=== PATIENT | female | born 1980 | race Caucasian/White ===

== ENCOUNTER 2022-05-22 10:32 | Emergency (ER) | payer SELFPAY ==
[~2022-05-22] VITALS: Ht 154.9 cm; Wt 102.0 kg
--- NOTE | 2022-05-22 11:05 | ED Abdominal Pain ---
General Chief Complaint: Abdominal/GI Problems Stated Complaint: ABD PAIN History of Present Illness Date Seen by Provider: May 22, 2022 Time Seen by Provider: 11:04 Initial Comments 42 y/o female presents today with c/o painful umbilical hernia. Pt states it has been present for approximately two years and has pain intermittently, this episode started two days ago. She has been taking motrin and some hydrocodone that she was given by a friend, but has not taken anything today. Pain is accompanied by nausea. She states she had some dysuria 2-3 days ago, but that has resolved. She reports she was told she couldn't have hernia operated on until she loses weight. She denies fever, chills, hematuria, urinary frequency or urgency, constipation, diarrhea, bloody stools, decreased appetite, vomiting, back pain, flank pain. She also c/o cough, congestion, and sore throat that started last night. Timing/Duration: 1-2 Days Severity/Quality: Moderate, Aching Location: Periumbilical Radiation: No Radiation Activities at Onset: None Modifying Factors: Improves With Analgesics; Worsens With Coughing; Improves With Defecating; Worsens With Movement Associated Symptoms: No Back Pain, No Chest Pain, No Diaphoresis, No Fever/Chills, No Fatigue; Headache; No Heartburn; Nausea/Vomiting (nausea without vomiting); No Shortness of Air; Swelling/Mass in Abdomen (known umbi lical hernia); No Syncope, No Weakness; Other (cough, congestion, sore throat) (DIANA BURGESS APRN) Allergies and Home Medications Allergies Coded Allergies: No Known Drug Allergies (Unverified , 05/22/22) Patient Home Medication List Home Medication List Reviewed: Yes (DIANA BURGESS APRN) Cefdinir (Cefdinir) 300 Mg Capsule, 300 MG PO BID Prescribed by: Diana Burgess on 05/22/22 1151 Review of Systems Review of Systems Constitutional: No chills, No diaphoresis, No fever, No malaise EENTM: No Ear Pain, No Mouth Pain, No Mouth Swelling; Nose Congestion; No Nose Pain; Throat Pain; No Throat Swelling Respiratory: Cough; Denies Shortness of Air, Denies SOA With Exertion, Denies SOA at Rest, Denies Wheezing Cardiovascular: Denies Chest Pain, Denies Palpitations, Denies Syncope Gastrointestinal: Denies Abdomen Distended; Abdominal Pain; Denies Blood Streaked Stools, Denies Constipated, Denies Diarrhea, Denies Difficulty Swallowing; Nausea; Denies Poor Appetite, Denies Rectal Bleeding, Denies Vomiting Genitourinary: Denies Burning, Denies Discharge, Denies Drainage, Denies Freq uency, Denies Flank Pain, Denies Hematuria, Denies Incontinence, Denies Pain, Denies Urgency Musculoskeletal: No back pain, No joint swelling, No muscle pain, No muscle stiffness, No muscle cramps Skin: No lesions, No pruritus, No rash Endocrine: No Symptoms Reported Hematologic/Lymphatic: No Symptoms Reported (DIANA BURGESS APRN) Past Qatxgqa-Sbyvwh-Ropgqn Hx Patient Social History Tobacco Use?: No Substance use?: No Alcohol Use?: No (DIANA BURGESS APRN) Past Medical History Gallbladder (DIANA BURGESS APRN) Physical Exam Vital Signs Vital Signs - First Documented 05/22/22 10:50 Temp 37.3 Pulse 121 Resp 16 B/P (MAP) 148/102 (117) Pulse Ox 99 O2 Delivery Room Air (BLAYNE TRAN MD) Vital Signs Capillary Refill : (DIANA BURGESS APRN) Height/Weight/BMI Height: '" Weight: lbs. oz. kg; BMI Method: General Appearance: WD/WN, no apparent distress HEENT: TMs normal, pharynx normal, other (nares congested) Neck: non-tender, full range of motion, supple, normal inspection Respiratory: chest non-tender, lungs clear, normal breath sounds, no respiratory distress Cardiovascular: normal peripheral pulses, regular rate, rhythm Gastrointestinal: normal bowel sounds, soft; No distended, No guarding, No rebound; tenderness (umbilical hernia), hernia (umbilical) Back: normal inspection, no CVA tenderness Skin: normal color, warm/dry Lymphatic: no adenopathy (DIANA BURGESS APRN) Progress/Results/Core Measures Results/Orders Lab Results Laboratory Tests Test 05/22/22 10:34 05/22/22 10:55 05/22/22 11:19 Range/Units Lab Scanned Report Referred Lab Report [id number] Influenza Type A (RT-PCR) Not Detected Not Detecte Influenza Type B (RT-PCR) Not Detected Not Detecte SARS-CoV-2 RNA (RT-PCR) Not Detected Not Detecte Urine Color YELLOW Urine Clarity CLEAR Urine pH 7.0 5-9 Urine Specific [place] 1.025 H 1.016-1.022 Urine Protein NEGATIVE NEGATIVE Urine Glucose (UA) NEGATIVE NEGATIVE Urine Ketones NEGATIVE NEGATIVE Urine Nitrite NEGATIVE NEGATIVE Urine Bilirubin NEGATIVE NEGATIVE Urine Urobilinogen 1.0 < = 1.0 MG/DL Urine Leukocyte Esterase 1+ H NEGATIVE Urine RBC (Auto) NEGATIVE NEGATIVE Urine RBC NONE /HPF Urine WBC 5-10 H /HPF Urine Squamous Epithelial Cells 5-10 /HPF Urine Crystals NONE /LPF Urine Bacteria MODERATE H /HPF Urine Casts NONE /LPF Urine Mucus SMALL H /LPF Urine Culture Indicated YES (BLAYNE TRAN MD) Micro Results Microbiology 05/22/22 Urine Culture - Final, Complete Growth Consistent (BLAYNE TRAN MD) My Orders Orders - BLAYNE TRAN MD Ua Culture If Indicated (05/22/22 10:56) Influenza A And B By Pcr (05/22/22 11:02) Covid 19 Inhouse Test (05/22/22 11:02) Isolation Central Supply Req (05/22/22 11:02) Urine Culture (05/22/22 11:19) (BLAYNE TRAN MD) Vital Signs/I&O 05/22/22 05/22/22 10:50 11:58 Temp 37.3 Pulse 121 111 Resp 16 18 B/P (MAP) 148/102 (117) 145/85 Pulse Ox 99 98 O2 Delivery Room Air Room Air (BLAYNE TRAN MD) Departure Impression Primary Impression: Umbilical hernia Additional Impression: UTI (urinary tract infection) Disposition: 01 HOME, SELF-CARE Condition: Improved Departure-Patient Inst. Decision time for Depature: 11:44 (DIANA BURGESS APRN) Referrals: [facility] (PCP/Family) Primary Care Physician Add. Discharge Instructions: Tylenol 500mg every 4 hours as needed, ibuprofen 600mg every 6 hours as needed for pain. Avoid straining and any lifting greater than 10 pounds. Take antibiotic as prescribed for UTI. Push fluids, drink at least 2 liters of water daily. Follow up with PCP if hernia continues to be bothersome. Follow up with any new/worsening concerns. All discharge instructions reviewed with patient and/or family. Voiced understanding. Scripts Cefdinir (Cefdinir) 300 Mg Capsule 300 MG PO BID for 5 Days, #10 CAP Prov: DIANA BURGESS APRN 05/22/22 ATTENDING PHYSICIAN NOTE: I was physically present as attending physician in the emergency department during the care of this patient, but I was not directly involved in the decision making or delivery of care for this patient. (BLAYNE TRAN MD) DIANA BURGESS APRN May 22, 2022 11:05 BLAYNE TRAN MD May 25, 2022 12:29
[2022-05-22] MEDS ORDERED: ACETAMINOPHEN 325 MG TABLET PO ONE (11:15)
[2022-05-22] MEDS ORDERED: ONDANSETRON 4 MG (ZOFRAN) ORAL DISSOLVE TAB PO ONE (11:15)
[2022-05-22] MEDS ORDERED: IBUPROFEN 800 MG (MOTRIN) TAB PO ONE (11:15)
[2022-05-22 11:24] LABS: BILIRUBIN,URINE NEGATIVE (NEGATIVE); CLARITY,URINE CLEAR; COLOR,URINE YELLOW; GLUCOSE, URINE (UA) NEGATIVE (NEGATIVE); KETONES,URINE NEGATIVE (NEGATIVE); LEUKOCYTE ESTERASE ,URINE 1+ (NEGATIVE); NITRITE,URINE NEGATIVE (NEGATIVE); PROTEIN,URINE NEGATIVE (NEGATIVE)
[2022-05-22 11:32] LABS: BACTERIA,URINE MODERATE /HPF
[2022-05-22] MEDS ORDERED: CEFD300C3 PO (11:51)
[2022-05-22 11:58] VITALS: BP 145/85
== END 2022-05-22 12:02 | disposition home or self-care (01) ==
LOC: EDUNIT# 10:32 → ER 10:34
DX: K42.9 Umbilical hernia without obstruction or gangrene (principal); N39.0 Urinary tract infection, site not specified; Z20.822 Contact with and (suspected) exposure to COVID-19
CPT/HCPCS: 81000; 87088; 87636; 99283

== ENCOUNTER 2022-06-26 08:53 | Day surgery (SDC) | payer SELFPAY ==
[~2022-06-26] VITALS: Ht 160 cm; Wt 97.0 kg
[2022-06-26] VITALS (10 sets, daily range): BP systolic 116–131; BP diastolic 80–96
[~2022-06-26 08:53] MED LIST: CEFD300C3 PO
[2022-06-26] MEDS ORDERED: LIRA0.6P3 SQ (09:06)
[2022-06-26] MEDS ORDERED: morphine INJ 10 MG/ML 1ML (SYR OR VIAL) IVP STA (09:13)
[2022-06-26] MEDS ORDERED: NS IV 1000 ML 1,000 ML IV STA (09:13)
--- NOTE | 2022-06-26 09:13 | ED Abdominal Pain ---
General Chief Complaint: Abdominal/GI Problems Stated Complaint: SEVERE ABDOMINAL PAIN Nursing Triage Note: pt states upper and lower mid abd pain that started yesterday, last bm was 2 days ago, small amount, denies urinary issues, pt has a hernia that she has had for about a yr Source of Information: Patient, Family Exam Limitations: No Limitations, Language Barrier History of Present Illness Date Seen by Provider: Jun 26, 2022 Time Seen by Provider: 09:00 Initial Comments Patient is a 42-year-old female who presents to the emergency department today with a chief complaint of abdominal pain. She states it started yesterday morning. She points to the bilateral upper quadrants as well as mid abdomen. She has had some discomfort similar to this in the past related to her umbilical hernia however it has never lasted this long. She states that she was doing laundry at the time of onset but not doing any heavy lifting. She has had decre ased appetite. She has been a little nauseous. No bowel movement in 2 days. Denies fevers, chills. No dysuria, urgency or frequency. No abnormal vaginal discharge. She has tried xwmw-mkt-hyqbwcg pain medications without any relief of symptoms. When she woke up this morning the pain was so bad she states she almost could not get out of bed. She rates it at a "10". All other review of systems reviewed and negative except as stated Timing/Duration: 1-2 Days Severity/Quality: Severe, Aching Location: Epigastric, Periumbilical Radiation: No Radiation Activities at Onset: Activity (dragging a bag of clothes and a coughing fit) Modifying Factors: Improves With Resting (improves pain slightly) Associated Symptoms: Nausea/Vomiting, Other (no BM in 2 days) Allergies and Home Medications Allergies Coded Allergies: ciprofloxacin (Verified Allergy, Intermediate, 06/26/22) Patient Home Medication List Home Medication List Reviewed: Yes Cefdinir (Cefdinir) 300 Mg Capsule, 300 MG PO BID Prescribed by: Diana Ruano on 05/22/22 1151 Liraglutide (Victoza 3-Malvin) 0.6 Mg/0.1 Ml (18 Mg/3 Ml) Pen.injctr, 0.6 MG SQ, (Reported) Entered as Reported by: ADELINE ISIDRO on 06/26/22 0906 Last Action: New Order Review of Systems Review of Systems Constitutional: see HPI EENTM: No Symptoms Reported Respiratory: No Symptoms Reported Cardiovascular: No Symptoms Reported Gastrointestinal: Abdominal Pain, Constipated, Nausea Genitourinary: No Symptoms Reported Musculoskeletal: no symptoms reported Skin: no symptoms reported Psychiatric/Neurological: No Symptoms Reported Past Vkdwyoc-Gvrsda-Jekpqt Hx Immunizations Up To Date First/Initial COVID19 Vaccinat: 2020 Second COVID19 Vaccination Moisés: 2020 Third COVID19 Vaccination Date: 2020 Past Medical History Surgery/Hospitalization HX: gerd Gallbladder Physical Exam Vital Signs Vital Signs - First Documented 06/26/22 08:58 Temp 37.0 Pulse 102 Resp 20 B/P (MAP) 128/89 (102) Pulse Ox 100 O2 Delivery Room Air Capillary Refill : Less Than 3 Seconds Height/Weight/BMI Height: '" Weight: lbs. oz. kg; 37.00 BMI Method: General Appearance: WD/WN, mild distress HEENT: PERRL/EOMI Respiratory: lungs clear, normal breath sounds, no respiratory distress, no accessory muscle use Cardiovascular: regular rate, rhythm, tachycardia (102) Gastrointestinal: soft, abnormal bowel sounds (hypoactive), tenderness (periumbilical and bilat upper quadrants), other (umbilical hernia, mass palpated to the right of the umbilicus, very tender; no rebound or involuntary guarding) Extremities: normal range of motion, normal inspection Neurologic/Psychiatric: no motor/sensory deficits, alert, normal mood/affect, oriented x 3 Skin: normal color, warm/dry Progress/Results/Core Measures Results/Orders Lab Results Laboratory Tests Test 06/26/22 09:15 Range/Units White Blood Count 8.8 4.3-11.0 10^3/uL Red Blood Count 5.22 H 3.80-5.11 10^6/uL Hemoglobin 13.8 11.5-16.0 g/dL Hematocrit 43 35-52 % Mean Corpuscular Volume 81 80-99 fL Mean Corpuscular Hemoglobin 26 25-34 pg Mean Corpuscular Hemoglobin Concent 33 32-36 g/dL Red Cell Distribution Width 14.5 10.0-14.5 % Platelet Count 609 H 130-400 10^3/uL Mean Platelet Volume 9.1 9.0-12.2 fL Immature Granulocyte % (Auto) 0 % Neutrophils (%) (Auto) 68 42-75 % Lymphocytes (%) (Auto) 23 12-44 % Monocytes (%) (Auto) 7 0-12 % Eosinophils (%) (Auto) 1 0-10 % Basophils (%) (Auto) 1 0-10 % Neutrophils # (Auto) 6.0 1.8-7.8 10^3/uL Lymphocytes # (Auto) 2.1 1.0-4.0 10^3/uL Monocytes # (Auto) 0.6 0.0-1.0 10^3/uL Eosinophils # (Auto) 0.1 0.0-0.3 10^3/uL Basophils # (Auto) 0.0 0.0-0.1 10^3/uL Immature Granulocyte # (Auto) 0.0 0.0-0.1 10^3/uL Sodium Level 138 135-145 MMOL/L Potassium Level 4.0 3.6-5.0 MMOL/L Chloride Level 104 98-107 MMOL/L Carbon Dioxide Level 23 21-32 MMOL/L Anion Gap 11 5-14 MMOL/L Blood Urea Nitrogen 13 7-18 MG/DL Creatinine 0.78 0.60-1.30 MG/DL Estimat Glomerular Filtration Rate 98 BUN/Creatinine Ratio 17 Glucose Level 100 70-105 MG/DL Calcium Level 9.9 8.5-10.1 MG/DL Corrected Calcium 8.5-10.1 MG/DL Total Bilirubin 0.5 0.1-1.0 MG/DL Aspartate Amino Transf (AST/SGOT) 17 5-34 U/L Alanine Aminotransferase (ALT/SGPT) 29 0-55 U/L Alkaline Phosphatase 81 40-136 U/L Total Protein 8.7 H 6.4-8.2 GM/DL Albumin 4.7 H 3.2-4.5 GM/DL My Orders Orders - CHRISTOPHER BOLAND MD Ed Iv/Invasive Line Start (06/26/22 09:13) Cbc With Automated Diff (06/26/22 09:13) Comprehensive Metabolic Panel (06/26/22 09:13) Urine Bedside (06/26/22 09:13) Ns Iv 1000 Ml (Sodium Chloride 0.9%) (06/26/22 09:13) Morphine Injection (Morphine Injection (06/26/22 09:13) Ondansetron Injection (Zofran Injectio (06/26/22 09:15) Ct Abdomen/Pelvis W (06/26/22 09:44) Iohexol Injection (Omnipaque 350 Mg/Ml 1 (06/26/22 10:00) Ns (Ivpb) (Sodium Chloride 0.9% Ivpb Bag (06/26/22 10:00) Lorazepam Injection (Ativan Injection) (06/26/22 10:46) Medications Given in ED Current Medications Medications Dose Ordered Sig/Dennis Route Start Time Stop Time Status Last Admin Dose Admin Iohexol 100 ml ONCE ONCE IV 06/26/22 10:00 06/26/22 10:01 DC 06/26/22 10:06 80 ML Ondansetron HCl 4 mg ONCE ONCE IVP 06/26/22 09:15 06/26/22 09:16 DC 06/26/22 09:24 4 MG Sodium Chloride 100 ml ONCE ONCE IV 06/26/22 10:00 06/26/22 10:01 DC 06/26/22 10:06 80 ML Vital Signs/I&O 06/26/22 06/26/22 08:58 09:25 Temp 37.0 37.0 Pulse 102 Resp 20 B/P (MAP) 128/89 (102) Pulse Ox 100 O2 Delivery Room Air Blood Pressure Mean: 102 Progress Progress Note : Time: 11:12 Progress Note Patient seen and examined, 42-year-old with abdominal pain. Evaluation today includes physical exam, CBC, chemistry, test, CT scan of the abdomen and pelvis with IV contrast. Differential diagnosis based on history and physical exam, incarcerated umbilical hernia, small bowel obstruction/partial small bowel obstruction. Patient's labs are reviewed and CBC is normal, chemistry is normal, test was negative. CT scan shows umbilical hernia containing fat. Case is discussed with Dr. Kingsley, general surgery on- call who stated that he would be happy to fix this hernia today. I discussed it with the patient. She is willing to have it corrected today. She is n.p.o. from solid food 630 last night she did have a sip of water this morning. Diagnostic Imaging Comments [facility]. [place], [place] NAME: CRISTINA GAN [facility] REC#: [id number] PT STATUS: REG ER : 1980 PHYSICIAN: CHRISTOPHER BOLAND MD ADMIT DATE: 06/26/22/ER Draft Date of Exam:06/26/22 CT ABDOMEN/PELVIS W PROCEDURE: CT abdomen and pelvis with contrast. TECHNIQUE: Multiple contiguous axial images were obtained through the abdomen and pelvis after administration of intravenous contrast. Auto Exposure Controls were utilized during the CT exam to meet ALARA standards for radiation dose reduction. All CT scans use one or more of the following dose optimizing techniques: automated exposure control, MA and/or KvP adjustment based on patient size and exam type or iterative reconstruction. INDICATION: Upper and lower abdominal pain. COMPARISON: No prior studies are available for comparison. FINDINGS: Imaging through the lung bases demonstrates regions of linear atelectasis or scarring in the bilateral lower lobes. The liver demonstrates generalized low attenuation, consistent with hepatic steatosis. No liver mass is identified. The gallbladder is unremarkable. No biliary ductal dilatation is identified. The pancreas and spleen are unremarkable. No adrenal mass is identified. The kidneys are unremarkable apart from a small cortical low-attenuation lesion in the right kidney, too small to characterize. The aorta is nonaneurysmal. There is a fat-containing umbilical hernia. There is some stranding in the fat and minimal fluid. No herniated bowel loops are detected. There is no bowel obstruction identified. There is diverticulosis of the sigmoid colon but no evidence of acute diverticulitis. The bladder is unremarkable. The uterus and ovaries are unremarkable. IMPRESSION: 1. Hepatic steatosis. 2. Uncomplicated diverticulosis. There are no findings to suggest acute diverticulitis. 3. Fat-containing umbilical hernia. There is a moderate amount of stranding in the herniated fat and omental infarction cannot be entirely excluded. No herniated bowel loop or evidence of bowel obstruction is identified. Dictated on workstation # [id number] Dict: 06/26/22 1022 Trans: 06/26/22 1029 [id number] Interpreted by: ANDREW GUTIERREZ MD Electronically signed by: Departure Communication (Admissions) Time/Spoke to Consulting Phy: 11:[address] Kingsley Impression Primary Impression: Umbilical hernia Qualified Codes: K42.9 - Umbilical hernia without obstruction or gangrene Disposition: ADMITTED INPATIENT Condition: Stable Admissions Decision to Admit Reason: Admit from ER (General) Decision to Admit/Date: Jun 26, 2022 Time/Decision to Admit Time: 11:16 Departure-Patient Inst. Referrals: [facility] (PCP/Family) Primary Care Physician CHRISTOPHER BOLAND MD Jun 26, 2022 09:13
[2022-06-26] MEDS ORDERED: ONDANSETRON 4 MG/2 ML (SDV) Z0FRAN IVP ONE ×2 (09:15→16:30)
[2022-06-26 09:26] LABS: BASOPHILS % (AUTO) 1 % (0-10); EOSINOPHILS # (AUTO) 0.1 10^3/uL (0.0-0.3); EOSINOPHILS % (AUTO) 1 % (0-10); HEMATOCRIT 43 % (35-52); HEMOGLOBIN 13.8 g/dL (11.5-16.0); LYMPHOCYTES # (AUTO) 2.1 10^3/uL (1.0-4.0); LYMPHOCYTES % (AUTO) 23 % (12-44); MEAN CORPUSCULAR HEMOGLOBIN 26 pg (25-34); MEAN CORPUSCULAR HGB CONC 33 g/dL (32-36); MEAN CORPUSCULAR VOLUME 81 fL (80-99); MEAN PLATELET VOLUME 9.1 fL (9.0-12.2); MONOCYTES # (AUTO) 0.6 10^3/uL (0.0-1.0); MONOCYTES % (AUTO) 7 % (0-12); NEUTROPHILS % (AUTO) 68 % (42-75); PLATELET COUNT 609 10^3/uL (130-400); WHITE BLOOD COUNT 8.8 10^3/uL (4.3-11.0)
[2022-06-26 09:36] LABS: ALBUMIN 4.7 GM/DL (3.2-4.5)
[2022-06-26 09:37] LABS: CHLORIDE 104 MMOL/L (98-107); SODIUM 138 MMOL/L (135-145)
[2022-06-26 09:38] LABS: CALCIUM 9.9 MG/DL (8.5-10.1)
[2022-06-26 09:39] LABS: GLUCOSE 100 MG/DL (70-105); TOTAL PROTEIN 8.7 GM/DL (6.4-8.2)
[2022-06-26 09:40] LABS: CARBON DIOXIDE 23 MMOL/L (21-32)
[2022-06-26 09:41] LABS: BILIRUBIN,TOTAL 0.5 MG/DL (0.1-1.0)
[2022-06-26 09:42] LABS: ALKALINE PHOSPHATASE 81 U/L (40-136)
[2022-06-26 09:43] LABS: CREATININE SERUM 0.78 MG/DL (0.60-1.30); GFR ESTIMATED 98
[2022-06-26 09:44] LABS: BUN/CREATININE RATIO 17
[2022-06-26 09:46] LABS: ALANINE AMINOTRANSFERASE 29 U/L (0-55)
[2022-06-26] MEDS ORDERED: NS 100 ML (IVPB) BAG IV ONE (10:00)
[2022-06-26] MEDS ORDERED: IOHEXOL 350 MG/ML 100 ML (OMNIPAQUE 350) VIAL IV ONE (10:00)
--- NOTE | 2022-06-26 10:30 | Diagnostic Imaging Report ---
PROCEDURE: CT abdomen and pelvis with contrast. TECHNIQUE: Multiple contiguous axial images were obtained through the abdomen and pelvis after administration of intravenous contrast. Auto Exposure Controls were utilized during the CT exam to meet ALARA standards for radiation dose reduction. All CT scans use one or more of the following dose optimizing techniques: automated exposure control, MA and/or KvP adjustment based on patient size and exam type or iterative reconstruction. INDICATION: Upper and lower abdominal pain. COMPARISON: No prior studies are available for comparison. FINDINGS: Imaging through the lung bases demonstrates regions of linear atelectasis or scarring in the bilateral lower lobes. The liver demonstrates generalized low attenuation, consistent with hepatic steatosis. No liver mass is identified. The gallbladder is unremarkable. No biliary ductal dilatation is identified. The pancreas and spleen are unremarkable. No adrenal mass is identified. The kidneys are unremarkable apart from a small cortical low-attenuation lesion in the right kidney, too small to characterize. The aorta is nonaneurysmal. There is a fat-containing umbilical hernia. There is some stranding in the fat and minimal fluid. No herniated bowel loops are detected. There is no bowel obstruction identified. There is diverticulosis of the sigmoid colon but no evidence of acute diverticulitis. The bladder is unremarkable. The uterus and ovaries are unremarkable. IMPRESSION: 1. Hepatic steatosis. 2. Uncomplicated diverticulosis. There are no findings to suggest acute diverticulitis. 3. Fat-containing umbilical hernia. There is a moderate amount of stranding in the herniated fat and omental infarction cannot be entirely excluded. No herniated bowel loop or evidence of bowel obstruction is identified. Dictated by: Dictated on workstation # [id number]
[2022-06-26] MEDS ORDERED: LORazepam INJ 2 MG/ML (ATIVAN) VIAL IVP STA (10:46)
[2022-06-26] MEDS ORDERED: ceFAZolin INJECTION 2,000 MG ONE (11:34)
[2022-06-26] MEDS ORDERED: NS (IVPB) 100 ML ONE (11:41)
[2022-06-26] MEDS ORDERED: proPOfol 200 MG/20 ML (DIPRIVAN) VIAL IV ONE (11:56)
[2022-06-26] MEDS ORDERED: LIDOCAINE PF 2% 5 ML (XYLOCAINE) VIAL ONE (11:56)
[2022-06-26] MEDS ORDERED: SEVOFLURANE (ULTANE) 15 ML INHAL SOLN ONE ×2 (11:56→13:29)
[2022-06-26] MEDS ORDERED: MIDAZOLAM 2 MG/2 ML (VERSED) VIAL ONE (11:56)
--- NOTE | 2022-06-26 11:57 | Consultation - Surgery ---
History of Present Illness History of Present Illness Patient Consulted On(kashif/time) 06/26/22 11:52 Time Seen by Provider: 09:56 History of Present Illness Surgery asked to consult regarding abdominal pain and incarcerated umbilical hernia. HPI per ED: Patient is a 42-year-old female who presents to the emergency department today with a chief complaint of abdominal pain. She states it started yesterday morning. She points to the bilateral upper quadrants as well as mid abdomen. She has had some discomfort similar to this in the past related to her umbilical hernia however it has never lasted this long. She states that she was doing laundry at the time of onset but not doing any heavy lifting. She has had decreased appetite. She has been a little nauseous. No bowel movement in 2 days. Denies fevers, chills. No dysuria, urgency or frequency. No abnormal vaginal discharge. She has tried [id number]-[id number] pain medications without any relief of symptoms. When she woke up this morning the pain was so bad she states she almost could not get out of bed. She rates it at a "10". When I spoke to pt she stated her pain started yesterday and got worse, "it has lasted at least 24 hours". This is the longest it has lasted. Stated she was in the ER a month or so ago for the same thing and was told it was not that bad and sent home. She said last time it was actually "purplish" on her skin. Nothing makes pain better except the pain meds and straining makes pain worse. She was told she needs to lose weight "before anyone would do surgery on her." She states she was told she is "borderline" DM. Allergies and Home Medications Allergies Coded Allergies: ciprofloxacin (Verified Allergy, Intermediate, 06/26/22) Patient Home Medication List Home Medication List Reviewed: Yes Cefdinir (Cefdinir) 300 Mg Capsule, 300 MG PO BID Prescribed by: Diana Ruano on 05/22/22 1151 Liraglutide (Victoza 3-Malvin) 0.6 Mg/0.1 Ml (18 Mg/3 Ml) Pen.injctr, 0.6 MG SQ, (Reported) Entered as Reported by: ADELINE ISIDRO on 06/26/22 0906 Last Action: New Order Past Hraujwt-Hjzzvl-Usyktw Hx Patient Social History Smoking Status: Never a Smoker Alcohol Use?: No Substance type: Marijuana Surgeries History of Surgeries: No Respiratory History of Respiratory Disorde: No Cardiovascular History of Cardiac Disorders: No Neurological History of Neurological Disord: No Genitourinary History of Genitourinary Disor: No Gastrointestinal History of Gastrointestinal Di: No Musculoskeletal History of Musculoskeletal Dis: No Endocrine History of Endocrine Disorders: No HEENT History of HEENT Disorders: No Loss of Vision: Denies Hearing Impairment: Denies Cancer History of Cancer: No Psychosocial History of Psychiatric Problem: Yes Behavioral Health Disorders: Anxiety Integumentary History of Skin or Integumenta: No Family Medical History Significant Family History: Heart Disease, Cancer (Mother of lung CA), Diabetes, Hypertension Review of Systems-General Constitutional: No chills, No fever, No malaise EENTM: No blurred vision, No mouth swelling, No epistaxis Respiratory: No cough, No dyspnea on exertion Cardiovascular: No chest pain, No palpitations Gastrointestinal: abdominal pain; No hematemesis, No jaundice; nausea; No vomiting Genitourinary: No dysuria, No frequency, No hematuria Musculoskeletal: No back pain, No joint pain Skin: No change in color, No change in hair/nails Psychiatric/Neurological: Anxiety; Denies Depressed, Denies Seizure, Denies Tremors Physical Exam-General Problems Physical Exam Vital Signs Vital Signs - First Documented 06/26/22 08:58 Temp 37.0 Pulse 102 Resp 20 B/P (MAP) 128/89 (102) Pulse Ox 100 O2 Delivery Room Air Capillary Refill : Less Than 3 Seconds General Appearance: moderate distress (secondary to pain), obese Eyes: Bilateral Eye PERRL, Bilateral Eye EOMI HEENT: pharynx normal; No scleral icterus (R), No scleral icterus (L) Neck: non-tender, supple Respiratory: lungs clear, normal breath sounds, no respiratory distress, no accessory muscle use Cardiovascular: regular rate, rhythm (HR 90 when I checked), no murmur Gastrointestinal: soft, no organomegaly; No distended; guarding (voluntary), tenderness (around umbilicus), hernia (incarcerated umbilical henria - large fullness under umbilicus), other (umbilicus is mildly red) Rectal: deferred Back: no CVA tenderness, no vertebral tenderness Extremities: no pedal edema, no calf tenderness, normal capillary refill 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, no motor/sensory deficits, alert, oriented x 3, other (pt is anxious) Skin: normal color, warm/dry, tattoos/piercings Lymphatic: no adenopathy (neck, axilla or groin) Data Review Labs Laboratory Tests 06/26/22 09:15: White Blood Count 8.8, Red Blood Count 5.22H, Hemoglobin 13.8, Hematocrit 43, Mean Corpuscular Volume 81, Mean Corpuscular Hemoglobin 26, Mean Corpuscular Hemoglobin Concent 33, Red Cell Distribution Width 14.5, Platelet Count 609H, Mean Platelet Volume 9.1, Immature Granulocyte % (Auto) 0, Neutrophils (%) (Auto) 68, Lymphocytes (%) (Auto) 23, Monocytes (%) (Auto) 7, Eosinophils (%) (Auto) 1, Basophils (%) (Auto) 1, Neutrophils # (Auto) 6.0, Lymphocytes # (Auto) 2.1, Monocytes # (Auto) 0.6, Eosinophils # (Auto) 0.1, Basophils # (Auto) 0.0, Immature Granulocyte # (Auto) 0.0, Sodium Level 138, Potassium Level 4.0, Chloride Level 104, Carbon Dioxide Level 23, Anion Gap 11, Blood Urea Nitrogen 13, Creatinine 0.78, Estimat Glomerular Filtration Rate 98, BUN/Creatinine Ratio 17, Glucose Level 100, Calcium Level 9.9, Corrected Calcium , Total Bilirubin 0.5, Aspartate Amino Transf (AST/SGOT) 17, Alanine Aminotransferase (ALT/SGPT) 29, Alkaline Phosphatase 81, Total Protein 8.7H, Albumin 4.7H Radiology Date of Exam:06/26/22 CT ABDOMEN/PELVIS W PROCEDURE: CT abdomen and pelvis with contrast. TECHNIQUE: Multiple contiguous axial images were obtained through the abdomen and pelvis after administration of intravenous contrast. Auto Exposure Controls were utilized during the CT exam to meet ALARA standards for radiation dose reduction. All CT scans use one or more of the following dose optimizing techniques: automated exposure control, MA and/or KvP adjustment based on patient size and exam type or iterative reconstruction. INDICATION: Upper and lower abdominal pain. COMPARISON: No prior studies are available for comparison. FINDINGS: Imaging through the lung bases demonstrates regions of linear atelectasis or scarring in the bilateral lower lobes. The liver demonstrates generalized low attenuation, consistent with hepatic steatosis. No liver mass is identified. The gallbladder is unremarkable. No biliary ductal dilatation is identified. The pancreas and spleen are unremarkable. No adrenal mass is identified. The kidneys are unremarkable apart from a small cortical low-attenuation lesion in the right kidney, too small to characterize. The aorta is nonaneurysmal. There is a fat-containing umbilical hernia. There is some stranding in the fat and minimal fluid. No herniated bowel loops are detected. There is no bowel obstruction identified. There is diverticulosis of the sigmoid colon but no evidence of acute diverticulitis. The bladder is unremarkable. The uterus and ovaries are unremarkable. IMPRESSION: 1. Hepatic steatosis. 2. Uncomplicated diverticulosis. There are no findings to suggest acute diverticulitis. 3. Fat-containing umbilical hernia. There is a moderate amount of stranding in the herniated fat and omental infarction cannot be entirely excluded. No herniated bowel loop or evidence of bowel obstruction is identified. Dictated on workstation # [id number] Dict: 06/26/22 1022 Trans: 06/26/22 1029 [id number] Interpreted by: ANDREW GUTIERREZ MD Assessment/Plan Assessment/Plan Assessment/Plan Incarcerated Umbilical Hernia Obesity I initially saw pt in the CT scanner and we had a long talk about her options (before she even had the CT); she was very nervous about surgery. I went over the types of surgery (open vs. laparoscopic), mesh placement and we talked about why surgery would be necessary. I told her in a perfect world we would wait for her to lose some weight (because extra weight increases chance of failure); however, because she is having pain and has presented to the ER twice now she had indications to do surgery even though her BMI is higher. I then reviewed the CT myself and discussed the case with ED physician. Pt has a large amount of omentum incarcerated in the hernia defect and some fluid; which could indicate necrosis, but it is inflamed at the very least. I think she meets criteria for surgery now. She needed to think about it and then decided to do surgery today; she was given the option of doing surgery as an outpt. We discussed risks and complications not limited to pain, bleeding, infection, scar, damage to bowel, failure of the mesh and need for further procedure. All questions answered to her satisfaction. Will get consent for surgery and give IV ABX prior to case. JACQUELINE MAYER DO Jun 26, 2022 11:57
[2022-06-26] MEDS ORDERED: ONDANSETRON 4 MG/2 ML (SDV) Z0FRAN IVP PRN (12:00)
[2022-06-26] MEDS ORDERED: fentaNYL INJ 100 MCG/2 ML AMP IVP ONE (12:00)
[2022-06-26] MEDS ORDERED: morphine INJ 10 MG/ML 1ML (SYR OR VIAL) IVP ONE ×2 (12:00→14:30)
[2022-06-26] MEDS ORDERED: MEPERIDINE (DEMEROL) INJ 50 MG/ML IVP ONE (12:00)
[2022-06-26] MEDS ORDERED: BUP/EPI 0.5% 1:200,000 (SENSORCAINE) 30 ML VIAL ONE (12:02)
[2022-06-26] MEDS: LACTATED RINGERS 1,000 ML IV PRN ×2 (12:10→13:14)
[2022-06-26] MEDS ORDERED: GLYCOPYRROLATE 0.2 MG/ML (ROBINUL) 2 ML VIAL ONE (13:18)
[2022-06-26] MEDS ORDERED: NEOSTIGMINE (BLOXIVERZ ) 1 MG/1ML 10 ML VIAL ONE (13:19)
[2022-06-26] MEDS ORDERED: ROCURONIUM 50 MG/5 ML (ZEMURON) VIAL IV ONE (13:34)
--- NOTE | 2022-06-26 14:26 | Progress Note-Post Operative ---
Post-Operative Progess Note Surgeon (s)/Gaming Department Head (s) Surgeon JACQUELINE MAYER DO Gaming Department Head: SHAHBAZ Gonzalez Pre-Operative Diagnosis Incarcerated Umbilical hernia Post-Operative Diagnosis Same with ischemia, appx 2cm defect Procedure & Operative Findings Date of Procedure 06/26/22 Procedure Performed/Findings PROCEDURE: Laparoscopic Umbilical hernia repair with mesh. COMPLICATIONS: None. INDICATIONS: The patient is a 42, female with an incarcerated umbilical hernia, which has continued to cause discomfort. The patient was explained the risk and benefits of the procedure and wished to proceed with the procedure. Consent was signed on the chart. DESCRIPTION OF PROCEDURE: The patient was taken into the operating suite, prepped and draped in sterile fashion. Surgical pause was performed. Local anesthetic was infiltrated in left upper quadrant. A #11 blade scalpel was used to make a small skin incision. Cautery was used to dissect down to the fascia, which was then scored and divided the muscle, went through the posterior sheath and a balloon trocar was inserted into the abdomen. The abdomen was then insufflated. Took a picture of the omentum stuck in the defect. Next, a 5 mm trocar was placed in the right lower quadrant and a 5 mm trocar was placed in left lower quadrant. Then the omentum was taken out of the defect; pulled out relatively easily and found some fluid and early signs of ischemia. Elected to try and remove some of the hernia sac, to try and cut down on seroma formation. This was done with a Ligasure. I measured the defect and it was about 2cm diameter. An 4.5 inch round Echo Ventralight mesh was then inserted in the abdomen grabbed through a stab incision (at the umbilicus) with the Shwetha Shipman. The balloon was inflated on the mesh. Circumferential tacks were placed with two SecureStrap Tackers. The balloon was then removed and inner crown was created as well. The mesh was tacked with pressure being decreased. The 12 mm fascial defect was then closed using 0 Vicryl figure of eight suture. The abdomen was then desufflated,the trocars were removed. The skin was then closed using 4-0 Monocryl in a subcuticular fashion. The abdomen was washed and dried and Skin Affix was placed over the incisions. The patient tolerated procedure well without any complications. She was taken to recovery room in stable condition. Anesthesia Type GET Estimated Blood Loss Estimated blood loss (mL): scant Specimens/Packing Specimens Removed hernia sac JACQUELINE MAYER DO Jun 26, 2022 14:26
[2022-06-26] MEDS ORDERED: ACHD5005 PO (14:27)
--- NOTE | 2022-06-26 14:28 | Discharge Inst-Surgical ---
Discharge Inst-Surgical Depart Medication/Instructions New, Converted or Re-Newed RX: Transmitted to Pharmacy Patient Instructions Follow up Appt: Make appointment for 1 week. [phone] Instructions: No lifting greater than 20 pounds. No strenuous activity. May shower in 24 hours, no tub bath or soaking. Use incentive spirometer at home as directed. No Smoking Skin/Wound Care: May remove bandages in am. You need to leave the Dermabond on incision it will fall off on it's own. Symptoms to Report: Appetite Changes, Extremity Discoloration, Numbness/Tingling, Swelling Increased, Bleeding Excessive, Eyesight Changes, Pain Increased, Urine Color Change, Constipation(Persistent), Fever over 101 degree F, Pain/Pressure in chest, Urinating Difficulty, Cough Up/Vomit Blood, Heart Beat Irreg/Pounding, Pain/Pressure in jaw, Cramps in feet or legs, Lightheadedness, Pain/Pressure in shoulder, Diarrhea(Persistent), Memory Changes Suddenly, Questions/Concerns, Weight gain consecutive days, Dizziness/Fainting, Nausea/Vomiting, Shortness of Breath, Weight gain over 2 pounds If questions or concerns contact your physician Or seek help at emergency department. Activity Activity as Tolerated: Yes Activity Instructions: Avoid Stress to Incision Driving Instructions: No Driving/Refer to Dr. Castañeda Discharge Diet: No Restrictions Diet After 24 Hours: Clear Liquid if Nauseous If Any Problems/Questions/Issu: Contact Your Physician, Go to Emergency Room Skin/Wound Care Infection Signs and Symptoms: Increased Redness, Foul Odor of Wound, Increased Drainage, Skin Itchy or Has a Rash, Increased Swelling, Temperature Above 101 F Wound Care Comment: heating pad to shoulder or neck tonight for pain Bathing Instructions: Shower Stitches/[place]/Dermabond Dis: Dermabond Ice Pack: Ice On and Off Site JACQUELINE MAYER DO Jun 26, 2022 14:28
[2022-06-26] MEDS ORDERED: morphine INJ 10 MG/ML 1ML (SYR OR VIAL) ONE (14:35)
--- NOTE | 2022-06-28 06:31 | Anesthesia-General Post-Op ---
General Patient Condition Mental Status/LOC: Same as Preop Cardiovascular: Satisfactory Nausea/Vomiting: Absent Respiratory: Satisfactory Pain: Controlled Complications: Absent Post Op Complications Complications None Follow Up Care/Instructions Patient Instructions None needed. Anesthesia/Patient Condition Patient Condition Patient was doing well and discharged to home on 06-26-22 at approximately 1800. At that time she had no complaints other than being unable to void per nursing notes. Dr Kingsley agreed with her D/C to home with stable vital signs, no apparent adverse anesthesia problems. No complications reported per nursing. ROMARIO MURPHY DO Jun 28, 2022 06:31
== END 2022-06-26 18:20 | disposition home or self-care (01) ==
LOC: EDUNIT# 08:53 → ER 08:55 → SDC 12:04
PROVIDERS: ATTEND Surgery
DX: K42.0 Umbilical hernia with obstruction, without gangrene (principal); I99.8 Other disorder of circulatory system; E66.9 Obesity, unspecified; Z68.37 Body mass index [BMI] 37.0-37.9, adult
CPT/HCPCS: 49592; 74177; 80053; 84703; 85025; 99283; C1781; 36415

== ENCOUNTER 2023-03-24 18:28 | Emergency (ER) | payer SELFPAY ==
[~2023-03-24] VITALS: Ht 152.4 cm; Wt 102.0 kg
[~2023-03-24 18:28] MED LIST changes: +ACHD5005 PO; +LIRA0.6P3 SQ
[2023-03-24] MEDS ORDERED: fentaNYL INJECTION 100 MCG/2 ML VIAL IVP STA (19:17)
--- NOTE | 2023-03-24 19:20 | ED Abdominal Pain ---
General Chief Complaint: Abdominal/GI Problems Stated Complaint: ADB PAIN Nursing Triage Note: PT AMB TO [facility] WITH CC OF ABD PAIN SINCE THIS AM. PT RPEORTS HERNIA SURGERY IN Jun. PT DENIES NAUSEA, VOMITING AND DIARRHEA. Source of Information: Patient Exam Limitations: No Limitations (MINDA POTTS) History of Present Illness Date Seen by Provider: Mar 24, 2023 Time Seen by Provider: 19:19 Initial Comments Patient is a 43-year-old female who presents to the ED with lower abdominal pain. Pain is described as sharp and stabbing. Pain started this morning. Pain appears to be worse when she walks rates 10 out of 10. Some relief when she lies down rates 8 out of 10. She denies of any nausea vomiting or diarrhea. Did have a bowel movement today normal. Did eat some chips around 3 PM. H istory of umbilical hernia repair this June by Dr. Mayer. Patient denies of any pain with urination frequent urination, vaginal bleeding or vaginal discharge. Denies taking thing for pain. Denies chest pain, shortness of breath, fever, chills. She denies of any pain with eating. She does state every time she coughs she feels a sharp pain in her lower abdomen where she had surgery. (MINDA POTTS) Allergies and Home Medications Allergies Coded Allergies: ciprofloxacin (Verified Allergy, Intermediate, 06/26/22) Patient Home Medication List Home Medication List Reviewed: Yes (MINDA POTTS) Cefdinir (Cefdinir) 300 Mg Capsule, 300 MG PO BID Prescribed by: Diana Ruano on 05/22/22 1151 Cephalexin (Cephalexin) 500 Mg Tablet, 500 MG PO BID Prescribed by: ANTHONY STAPLES on 03/24/232148 Hydrocodone Bit/Acetaminophen (HYDROcodone/APAP 5 MG/325 MG TAB) 1 Tab Tab, 1 TAB PO Q8H PRN for PAIN-MODERATE (5-7) Prescribed by: JACQUELINE MAYER on 06/26/22 1427 Hydrocodone/Acetaminophen (Hydrocodone-Acetamin 5-325 mg) 5 Mg-325 Mg Tablet, 1 TAB PO Q4H PRN for PAIN-MODERATE (5-7) Prescribed by: ANTHONY STAPLES on 03/24/232148 Liraglutide (Victoza 3-Malvin) 0.6 Mg/0.1 Ml (18 Mg/3 Ml) Pen.injctr, 0.6 MG SQ, (R eported) Entered as Reported by: ADELINE ISIDRO on 06/26/22 09 Review of Systems Review of Systems Constitutional: No chills, No diaphoresis EENTM: No Double Vision, No Eye Pain Respiratory: Denies Cough, Denies Orthopnea Gastrointestinal: Abdominal Pain; Denies Diarrhea; Nausea; Denies Vomiting Genitourinary: Denies Burning, Denies Discharge, Denies Drainage, Denies Frequency Musculoskeletal: No back pain, No joint pain Skin: No change in color, No change in hair/nails Psychiatric/Neurological: Denies Anxiety (MINDA POTTS) All Other Systems Reviewed Negative Unless Noted: Yes (MINDA POTTS) Past [id number] Hx Immunizations Up To Date First/Initial COVID19 Vaccinat: 2020 Second COVID19 Vaccination Moisés: 2020 Third COVID19 Vaccination Date: 2020 (MINDA POTTS) Past Medical History Surgery/Hospitalization HX: gerd, kidney stones, umbilcal hernia Surgeries: No Respiratory: No Currently Using CPAP: No Currently Using BIPAP: No Cardiac: No Neurological: No Genitourinary: No Gastrointestinal: No Musculoskeletal: No Endocrine: No HEENT: No Loss of Vision: Denies Hearing Impairment: Denies Cancer: No Psychosocial: Yes Anxiety Integumentary: No (MINDA POTTS) Family Medical History Heart Disease, Cancer, Diabetes, Hypertension (MINDA POTTS) Physical Exam Vital Signs Vital Signs - First Documented 03/24/23 19:09 Temp 37.3 Pulse 122 Resp 18 B/P (MAP) 131/72 (91) Pulse Ox 97 O2 Delivery Room Air (AMIRABEHZAD K DO) Vital Signs Capillary Refill : Less Than 3 Seconds (MINDA POTTS) Height/Weight/BMI Height: '" Weight: lbs. oz. kg; 43.00 BMI Method: General Appearance: WD/WN, no apparent distress HEENT: PERRL/EOMI, normal ENT inspection, TMs normal, pharynx normal Neck: non-tender, full range of motion, supple Respiratory: chest non-tender, lungs clear, normal breath sounds, no respiratory distress, no accessory muscle use Cardiovascular: regular rate, rhythm, no edema, no gallop, no JVD Gastrointestinal: normal bowel sounds, soft, no organomegaly, other (Suprapubic tenderness. Normal bowel sound throughout. No rebound or guarding. No palpable mass) Extremities: normal range of motion, non-tender, normal inspection, no pedal edema, no calf tenderness Back: normal inspection, no CVA tenderness Neurologic/Psychiatric: manager games II-XII nml as tested, no motor/sensory deficits, alert, normal mood/affect, oriented x 3 Skin: normal color, warm/dry (MINDA POTTS) Progress/Results/Core Measures Results/Orders Lab Results Laboratory Tests Test 03/24/23 19:10 03/24/23 19:23 Range/Units Urine Color YELLOW Urine Clarity CLEAR Urine pH 7.0 5-9 Urine Specific [place] >=1.030 1.016-1.022 Urine Protein NEGATIVE NEGATIVE Urine Glucose (UA) NEGATIVE NEGATIVE Urine Ketones NEGATIVE NEGATIVE Urine Nitrite POSITIVE H NEGATIVE Urine Bilirubin NEGATIVE NEGATIVE Urine Urobilinogen 0.2 < = 1.0 MG/DL Urine Leukocyte Esterase TRACE H NEGATIVE Urine RBC (Auto) TRACE H NEGATIVE Urine RBC 0-2 /HPF Urine WBC 2-5 /HPF Urine Squamous Epithelial Cells RARE /HPF Urine Crystals NONE /LPF Urine Bacteria FEW H /HPF Urine Casts NONE /LPF Urine Mucus NEGATIVE /LPF Urine Culture Indicated YES White Blood Count 11.7 H 4.3-11.0 10^3/uL Red Blood Count 5.10 3.80-5.11 10^6/uL Hemoglobin 14.2 11.5-16.0 g/dL Hematocrit 44 35-52 % Mean Corpuscular Volume 86 80-99 fL Mean Corpuscular Hemoglobin 28 25-34 pg Mean Corpuscular Hemoglobin Concent 33 32-36 g/dL Red Cell Distribution Width 13.2 10.0-14.5 % Platelet Count 536 H 130-400 10^3/uL Mean Platelet Volume 8.8 L 9.0-12.2 fL Immature Granulocyte % (Auto) 0 % Neutrophils (%) (Auto) 67 42-75 % Lymphocytes (%) (Auto) 23 12-44 % Monocytes (%) (Auto) 7 0-12 % Eosinophils (%) (Auto) 2 0-10 % Basophils (%) (Auto) 0 0-10 % Neutrophils # (Auto) 7.8 1.8-7.8 10^3/uL Lymphocytes # (Auto) 2.7 1.0-4.0 10^3/uL Monocytes # (Auto) 0.9 0.0-1.0 10^3/uL Eosinophils # (Auto) 0.2 0.0-0.3 10^3/uL Basophils # (Auto) 0.1 0.0-0.1 10^3/uL Immature Granulocyte # (Auto) 0.1 0.0-0.1 10^3/uL Sodium Level 140 135-145 MMOL/L Potassium Level 3.6 3.6-5.0 MMOL/L Chloride Level 106 98-107 MMOL/L Carbon Dioxide Level 25 21-32 MMOL/L Anion Gap 9 5-14 MMOL/L Blood Urea Nitrogen 9 7-18 MG/DL Creatinine 0.70 0.60-1.30 MG/DL Estimat Glomerular Filtration Rate 111 BUN/Creatinine Ratio 13 Glucose Level 123 H 70-105 MG/DL Calcium Level 9.8 8.5-10.1 MG/DL Corrected Calcium 8.5-10.1 MG/DL Total Bilirubin 0.3 0.1-1.0 MG/DL Aspartate Amino Transf (AST/SGOT) 21 5-34 U/L Alanine Aminotransferase (ALT/SGPT) 34 0-55 U/L Alkaline Phosphatase 91 40-136 U/L Total Protein 8.5 H 6.4-8.2 GM/DL Albumin 4.6 H 3.2-4.5 GM/DL Lipase 27 8-78 U/L (AMIRA,BEHZAD K DO) Micro Results Microbiology 03/24/23 Urine Culture - Final, Complete NO GROWTH (AMIRA,BEHZAD K DO) Vital Signs/I&O 03/24/23 03/24/23 19:09 22:13 Temp 37.3 Pulse 122 97 Resp 18 18 B/P (MAP) 131/72 (91) 128/99 Pulse Ox 97 99 O2 Delivery Room Air Room Air (AMIRA,BEHZAD K DO) Blood Pressure Mean: 91 Departure Communication (PCP) Reviewed previous ER visits, H&P, lab testing. Differential diagnosis colitis, appendicitis, mesenteric adenitis, cystitis, diverticulitis, abdominal hernia. CBC, CMP, lipase, urinalysis was ordered. She was started on a liter of fluid. Received 50 mcg of fentanyl with improvement of pain. Zofran for nausea. Tend erness to right and left lower quadrant. No obvious hernia. She had a hernia repair by Dr. Mayer this past June. There is no skin color changes. No vaginal bleeding vaginal discharge or specific urinary symptoms. Patient white blood count 11.7. Platelets 536. Chemistry grossly unremarkable. Urinalysis positive nitrites, trace leukocytes and red blood cells. Suspect potential UTI. She did develop some pain after urinating during her visit here which would suggest more cystitis. Due to location of pain CT abdomen pelvis was ordered. CT abdomen pelvis shows focal fat stranding with central fat lucency within the left pelvis is felt to relate to epiploic appendagitis. Small omental infarction felt less likely. Pain did return and she received Toradol with improvement of pain. Patient was discussed with Dr. Donnelly regarding CT scan results. Due to patient's finding at this time recommended conservative treatment. Not a surgical candidate. She is not on any type of anticoagulants. No history of peripheral vascular disease. She is otherwise healthy. Potentially secondary to torsion of the fat tissue or a spontaneous venous thrombosis of the involved epiploic appendage. she does not appear toxic or septic. Will discharge with pain medication and antibiotics Keflex for potential UTI. It was suggested to follow-up with general surgery outpatient at this time. If any worsening pain to return back to ED. Suggest follow-up your PCP in 2 to 3 days for reevaluation. If any worsening symptoms return back to ED such as pain fever vomiting. (MINDA POTTS) Impression Primary Impression: Epiploic appendagitis Additional Impression: UTI (urinary tract infection) Disposition: 01 HOME, SELF-CARE Condition: Stable Departure-Patient Inst. Decision time for Depature: 21:47 (MINDA POTTS) Referrals: [facility][1]/K (PCP/Family) Primary Care Physician JACQUELINE MAYER DO Patient Instructions: Abdominal Pain, Adult ED Add. Discharge Instructions: Recommend follow-up with Dr. Mayer for further evaluation. If any worsening pain fever vomiting to return back to ED. All discharge instructions reviewed with patient and/or family. Voiced understanding. Scripts Hydrocodone/Acetaminophen (Hydrocodone-Acetamin 5-325 mg) 5 Mg-325 Mg Tablet 1 TAB PO Q4H PRN for PAIN-MODERATE (5-7), #6 TAB Prov: MINDA POTTS 03/24/23 Cephalexin (Cephalexin) 500 Mg Tablet 500 MG PO BID for 7 Days, #14 TAB Prov: MINDA POTTS 03/24/23 ATTENDING PHYSICIAN NOTE: I WAS PHYSICALLY PRESENT ER PHYSICIAN, BUT I WAS NOT INVOLVED IN ANY DECISION MAKING OR ANY CARE OF THIS PATIENT, AND I AM NOT COLLABORATING PHYSICIAN. (BEHZAD COLLIER DO) MINDA POTTS Mar 24, 2023 19:20 BEHZAD COLLIER DO Mar 27, 2023 03:19
[2023-03-24] MEDS ORDERED: NS IV 1000 ML 1,000 ML ONE (19:29)
[2023-03-24] MEDS ORDERED: NS IV 1000 ML 1,000 ML IV SCH (19:30)
[2023-03-24] MEDS ORDERED: ONDANSETRON INJECTION 4 MG/2 ML (SDV) IVP ONE ×2 (19:30→21:15)
[2023-03-24 19:32] LABS: BASOPHILS # (AUTO) 0.1 10^3/uL (0.0-0.1); BASOPHILS % (AUTO) 0 % (0-10); EOSINOPHILS # (AUTO) 0.2 10^3/uL (0.0-0.3); EOSINOPHILS % (AUTO) 2 % (0-10); HEMATOCRIT 44 % (35-52); HEMOGLOBIN 14.2 g/dL (11.5-16.0); LYMPHOCYTES # (AUTO) 2.7 10^3/uL (1.0-4.0); LYMPHOCYTES % (AUTO) 23 % (12-44); MEAN CORPUSCULAR HEMOGLOBIN 28 pg (25-34); MEAN CORPUSCULAR HGB CONC 33 g/dL (32-36); MEAN CORPUSCULAR VOLUME 86 fL (80-99); MEAN PLATELET VOLUME 8.8 fL (9.0-12.2); MONOCYTES # (AUTO) 0.9 10^3/uL (0.0-1.0); MONOCYTES % (AUTO) 7 % (0-12); NEUTROPHILS # (AUTO) 7.8 10^3/uL (1.8-7.8); NEUTROPHILS % (AUTO) 67 % (42-75); PLATELET COUNT 536 10^3/uL (130-400); WHITE BLOOD COUNT 11.7 10^3/uL (4.3-11.0)
[2023-03-24 19:39] LABS: CLARITY,URINE CLEAR; COLOR,URINE YELLOW; PROTEIN,URINE NEGATIVE (NEGATIVE)
[2023-03-24 19:40] LABS: BACTERIA,URINE FEW /HPF; BILIRUBIN,URINE NEGATIVE (NEGATIVE); GLUCOSE, URINE (UA) NEGATIVE (NEGATIVE); KETONES,URINE NEGATIVE (NEGATIVE); LEUKOCYTE ESTERASE ,URINE TRACE (NEGATIVE); NITRITE,URINE POSITIVE (NEGATIVE); RBC,URINE 0-2 /HPF; SQUAMOUS EPITHELIAL CELL,UR RARE /HPF
[2023-03-24 20:04] LABS: ALANINE AMINOTRANSFERASE 34 U/L (0-55); ALBUMIN 4.6 GM/DL (3.2-4.5); ALKALINE PHOSPHATASE 91 U/L (40-136); BILIRUBIN,TOTAL 0.3 MG/DL (0.1-1.0); BUN/CREATININE RATIO 13; CALCIUM 9.8 MG/DL (8.5-10.1); CARBON DIOXIDE 25 MMOL/L (21-32); CHLORIDE 106 MMOL/L (98-107); GFR ESTIMATED 111; GLUCOSE 123 MG/DL (70-105); LIPASE 27 U/L (8-78); POTASSIUM 3.6 MMOL/L (3.6-5.0); SODIUM 140 MMOL/L (135-145); TOTAL PROTEIN 8.5 GM/DL (6.4-8.2)
[2023-03-24] MEDS ORDERED: IOHEXOL 350 MG/ML 100 ML (OMNIPAQUE 350) VIAL IV ONE (20:15)
[2023-03-24] MEDS ORDERED: NS 100 ML (IVPB) BAG IV ONE (20:15)
[2023-03-24] MEDS ORDERED: HOLD METFORMIN - RECEIVED CONTRAST 20 ML VIAL IV SCH (20:15)
--- NOTE | 2023-03-24 21:09 | Diagnostic Imaging Report ---
PROCEDURE: CT abdomen and pelvis with contrast, rule out appendicitis. TECHNIQUE: Multiple contiguous axial images were obtained through the abdomen and pelvis after the administration of intravenous contrast. All CT scans use one or more of the following dose optimizing techniques: automated exposure control, MA and/or KvP adjustment based on patient size and exam type or iterative reconstruction. INDICATION: Abdominal pain COMPARISON: 06/26/2022 FINDINGS: Bibasilar scarring and/or atelectasis. Small hiatal hernia. The liver is enlarged measuring 21 cm in craniocaudal dimension. Diffusely decreased density of the liver. The spleen is unremarkable. The adrenal glands are unremarkable. The pancreas is unremarkable. The gallbladder is unremarkable. Punctate nonobstructing calculus within the mid right kidney. Tiny subcentimeter hypodensity within the right kidney is too small to fully characterize. No hydroureteronephrosis. No aneurysmal dilatation of the abdominal aorta. Small fat-containing umbilical hernia versus postsurgical changes involving the umbilicus. This appears to be changed and significantly decreased from the prior examination. The urinary bladder is unremarkable. The uterus and adnexal structures are unremarkable. Focal fat stranding with central fat density is identified within the left lower quadrant, series 2, image 129 and series 601 image 55. This is near the sigmoid colon, though the sigmoid colon itself at this location is normal in appearance. Mild colonic diverticulosis. The appendix is unremarkable. No bowel obstruction or pneumatosis. No significant adenopathy, free air, or free fluid in abdomen or pelvis. No acute osseous abnormality. 5 mm grade 1 anterolisthesis of L5 on S1 secondary to bilateral pars articularis defects of L5. IMPRESSION: Focal fat stranding with central fat lucency within the left pelvis is felt to relate to epiploic appendagitis. Small omental infarction felt less likely. Colonic diverticulosis without CT evidence of diverticulitis. Hepatomegaly with associated fatty infiltration of the liver. Punctate nonobstructing right renal calculus. Interval postsurgical changes involving previously noted umbilical hernia. Additional findings as above. Dictated by: Dictated on workstation # [id number]
[2023-03-24] MEDS ORDERED: ACHD5005 PO (21:49)
[2023-03-24] MEDS ORDERED: CEPH500T PO (21:49)
[2023-03-24] MEDS ORDERED: CEPHALEXIN 250 MG CAPSULE PO STA (21:50)
[2023-03-24] MEDS ORDERED: RX-ONDANSETRON 4 MG ODT (ZOFRAN) PPK #4 PO ONE (22:00)
[2023-03-24] MEDS ORDERED: KETOROLAC INJ 30 MG/ML VIAL IVP ONE (22:00)
[2023-03-24 22:13] VITALS: BP 128/99
== END 2023-03-24 22:16 | disposition home or self-care (01) ==
LOC: EDUNIT# 18:28 → ER 18:29
DX: N39.0 Urinary tract infection, site not specified (principal); K63.89 Other specified diseases of intestine; Z87.442 Personal history of urinary calculi
CPT/HCPCS: 36415; 74177; 80053; 81000; 83690; 85025; 87088; 96361; 96374; 96375; 96376